=== PATIENT | male | born 2000 | race Caucasian/White ===

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

== ENCOUNTER 2025-05-19 08:44 | Emergency (ER) | payer BC ==
[~2025-05-19] VITALS: Ht 165.1 cm; Wt 77.1 kg
[2025-05-19] MEDS ORDERED: Acetaminophen/Oxycodone 5 MG/325 MG TABLET PO ONE (09:00)
[2025-05-19] MEDS ORDERED: MELOXICAM15 MG PO (09:25)
== END 2025-05-19 09:33 | disposition home or self-care (01) ==
LOC: ED 08:44
DX: S83.91XA Sprain of unspecified site of right knee, initial encounter (principal); Z88.0 Allergy status to penicillin; Z88.6 Allergy status to analgesic agent; Z98.890 Other specified postprocedural states; X58.XXXA Exposure to other specified factors, initial encounter; Y93.89 Activity, other specified; Y92.89 Other specified places as the place of occurrence of the external cause; Y99.8 Other external cause status